=== PATIENT | male | born 1965 | race Caucasian/White ===

== ENCOUNTER 2021-12-18 20:01 | Emergency (ER) | payer OTHER, SELFPAY ==
[2021-12-18 20:02] VITALS: BP 160/89; PULSE 89; RESP 16; TEMP 37.2; O2SAT 97; BMI 47.1
--- NOTE | 2021-12-18 20:27 | EDS_ITS ---
HPI History of Present Illness Chief Complaint: Lower Extremity Injury Detail of Chief Complaint: Right leg pain Informant: patient Onset/Context/Timing Current Severity: Moderate Maximum Severity: Moderate Narrative Narrative: Patient presents couple hours after stepping wrong coming down off his deck and injuring his leg. He complains of pain to the right foot and ankle along with distal tib-fib. He denies any other injury from fall. He was wearing boots at the time. [facility] Medical History Anxiety Hypertension Home Medications Omeprazole [Prilosec] 40 mg PO DAILY 03/06/13 [History Last Taken Unknown] aspirin 81 mg chewable tablet 81 mg PO DAILY@0800 03/06/13 [History Last Taken Unknown] cephalexin 500 mg capsule 500 mg PO Q6 03/06/13 [History Last Taken Unknown] eszopiclone 2 mg tablet (Lunesta) 2 mg PO QHS PRN PRN Sleep 03/06/13 [History Last Taken Unknown] lorazepam 1 mg tablet 1 mg PO QHS PRN PRN Sleep 03/06/13 [History Last Taken Unknown] metoprolol succinate 100 mg tablet,extended release 24 hr 100 mg PO DAILY 03/06/13 [History Last Taken Unknown] doxycycline hyclate 100 mg capsule 100 mg PO BID ##20 04/26/16 [Rx Last Taken Unknown] hydrocodone-acetaminophen 5-325mg 5mg-325mg 1 tab PO Q6H PRN pain 3 days #10 tabs 12/18/21 [Rx Last Taken Unknown] Allergy/AdvReac Type Severity Reaction Status Date / Time No Known Allergies Allergy Verified 12/18/21 20:06 Social History Smoking Status: Never smoker ROS ROS ED Constitutional Constitutional ED: Denies chills or fever(s) Eyes Eyes: Denies change in vision or discharge from eye(s) ENT ENT ED: Denies discharge from eye(s), rhinorrhea or sore throat Cardiovascular Cardiovascular: Denies chest pain or palpitations Respiratory/Chest Respiratory/Chest: Denies cough or dyspnea Gastrointestinal Gastrointestinal: Denies abdominal pain, diarrhea, nausea or vomiting Genitourinary Genitourinary ED: Denies difficulty urinating or dysuria Musculoskeletal Musculoskeletal: Reports extremity pain; Denies back pain Integumentary Denies Abrasions or rash Neurologic Neurologic: Denies headache(s) or weakness Psychiatric Psychiatric: Denies anxiety or depression Allergic/Immunologic Allergic/Immunologic ED: Denies lip swelling or urticaria EXAM Physical Exam Const Vital Signs: 12/18/21 20:02 Temperature 98.9 F Temperature Source Temporal Pulse Rate 89 Respiratory Rate 16 Blood Pressure 160/89 H Blood Pressure Mean 112 Pulse Ox 97 Oxygen Delivery Method Room Air Positive well nourished and well developed General Appearance ED: well developed HEENT Reports moist mucous membranes Eyes PERRL Neck full ROM Chest Wall inspection of chest normal and palpation of chest normal Resp normal respiratory effort and clear to auscultation bilaterally Cardio regular rate and regular rhythm GI non-tender Back/Spine no CVA tenderness Extremity Extremity Narrative: Tenderness palpation and edema to the right ankle, lateral greater than medial. Mild tenderness of the foot itself. No tenderness at the proximal fibula. Neuro oriented x3 and moves all extremities Psych mental status grossly normal Skin no wounds MDM MDM MDM Narrative Medical decision making narrative: Patient given [place] for pain. X-rays of the right tib-fib and right foot obtained. Radiography Diagnostic Testing: Clinical Impression(s) from Imaging Studies Tibia/Fibula X-Ray 12/18/21 20:50 IMPRESSION: Diffuse soft tissue swelling at the level of the ankle. Electronically Signed: Jarrett Hoffman MD at 21:29 EDT , Foot X-Ray 12/18/21 21:00 IMPRESSION: There is a calcaneal spur. There is an enthesophyte involving the posterior superior calcaneus at the site of insertion of the Achilles tendon. Electronically Signed: Jarrett Hoffman MD at 21:30 EDT , Treatment and Re-Evaluation Narrative: Right foot and right tib-fib x-rays per my interpretation reveal no acute fracture. Radiology interpretation is reviewed and agrees. Patient will be given an air stirrup splint. He has crutches in the car that he can use. I will write him a short course of [place] for pain control. Return instructions provided. Discharge Plan Triage Chief Complaint: Lower Extremity Injury ED Provider: Olesya Sanchez Dx/Rx/DC Orders Clinical Impression: Right ankle sprain Instructions: ED Ankle Sprain (Adult) Prescriptions: New hydrocodone-acetaminophen 5-325 mg tablet 1 tab PO Q6H PRN (Reason: pain) 3 Days Qty: 10 0RF No Action metoprolol succinate 100 MG tablet 100 mg PO DAILY cephalexin 500 MG capsule 500 mg PO Q6 aspirin 81 MG tablet,chewable 81 mg PO DAILY@0800 lorazepam 1 MG tablet 1 mg PO QHS PRN PRN (Reason: Sleep) eszopiclone [Lunesta] 2 MG tablet 2 mg PO QHS PRN PRN (Reason: Sleep) Omeprazole [Prilosec] 40 MG capsule 40 mg PO DAILY doxycycline hyclate 100 MG capsule 100 mg PO BID Qty: 20 0RF Primary Care Provider: Gregory Shea Referrals: Gregory Shea MD [Primary Care Provider] - 1 Week if not improving Activity Restrictions/Additional Instructions: Please use ibuprofen to help with pain and swelling. You can use the [place] for breakthrough pain at night. Disposition Disposition: Home, Self Care
[2021-12-18] MEDS: HYDROcodone Bitartrate/Apap 5/325 Tablet PO (20:31)
--- NOTE | 2021-12-18 20:50 | RAD_ITS ---
EXAM: XR RIGHT TIBIA AND FIBULA, 2 VIEWS CLINICAL INDICATION: injury TECHNIQUE: Frontal and lateral views of the right tibia and fibula. This report was created using [employer] report generation technology. COMPARISON: None. FINDINGS: BONES/JOINTS: Benign-appearing exostoses of the medial proximal tibia. The lesion points away from the joint space. No acute fracture. No subluxation. Normal alignment. SOFT TISSUES: Diffuse soft tissue swelling at the level of the ankle. No radiopaque foreign body. RAD/Tibia & Fibula 2 Views IMPRESSION: Diffuse soft tissue swelling at the level of the ankle. Electronically Signed: Jarrett Hoffman MD at 21:29 EDT ,
--- NOTE | 2021-12-18 21:00 | RAD_ITS ---
EXAM: XR RIGHT FOOT COMPLETE, 3 OR MORE VIEWS CLINICAL INDICATION: injury TECHNIQUE: Frontal, lateral and oblique views of the right foot. This report was created using [employer] report generation technology. COMPARISON: None. FINDINGS: BONES/JOINTS: There is a calcaneal spur. There is an enthesophyte involving the posterior superior calcaneus at the site of insertion of the Achilles tendon. No acute fracture. No subluxation. Normal alignment. Preservation of the joint space. No sclerotic or destructive changes observed. SOFT TISSUES: Unremarkable. No soft tissue swelling or gas. No radiopaque foreign body. RAD/Foot min 3 Views IMPRESSION: There is a calcaneal spur. There is an enthesophyte involving the posterior superior calcaneus at the site of insertion of the Achilles tendon. Electronically Signed: Jarrett Hoffman MD at 21:30 EDT ,
== END 2021-12-18 22:56 | disposition home or self-care (01) ==
PROVIDERS: Emergency Provider Emergency Medicine; PCP Family Medicine; Visit Provider Emergency Medicine
DX: S93.401A Sprain of unspecified ligament of right ankle, initial encounter (principal); X50.1XXA Overexertion from prolonged static or awkward postures, initial encounter; Y93.01 Activity, walking, marching and hiking; Y99.8 Other external cause status; Y92.008 Other place in unspecified non-institutional (private) residence as the place of occurrence of the external cause; I10 Essential (primary) hypertension; Z79.82 Long term (current) use of aspirin; Z79.899 Other long term (current) drug therapy
CPT/HCPCS: 73590; 73630; 99283

== ENCOUNTER → 2022-05-29 | Outpatient (CLI) | payer OTHER, SELFPAY ==
--- NOTE | 2022-05-29 06:49 | MRI_ITS ---
STUDY: MRI LUMBAR SPINE WITHOUT CONTRAST REASON FOR EXAM: Male, 56 years old. LOW BACK PAIN TECHNIQUE: Standardized fat and water weighted pulse sequences were obtained in the sagittal and axial planes. COMPARISON: None FINDINGS: T11-T12 and T12-L1: (Sagittal only). Normal endplates. Normal disc height, hydration and morphology. Normal central canal and normal bilateral intervertebral neural foramina. Normal lumbar lordosis. There is no substantial scoliosis. Normal conus medullaris that terminates at the upper L1 vertebral body level. L1-2: Normal endplates. Normal disc height, hydration and morphology. Normal bilateral facet joints. Normal central canal and bilateral lateral recesses. Normal bilateral intervertebral neural foramina. L2-3: Normal endplates. Normal disc height, hydration and morphology. Normal bilateral facet joints. Normal central canal and bilateral lateral recesses. Normal bilateral intervertebral neural foramina. L3-4: Normal endplates. Normal disc height, hydration and morphology. Normal bilateral facet joints. Normal central canal and bilateral lateral recesses. Normal bilateral intervertebral neural foramina. L4-5: Normal endplates. Normal disc height, hydration and morphology. Normal bilateral facet joints. Normal central canal and bilateral lateral recesses. Normal bilateral intervertebral neural foramina. L5-S1: Normal endplates. Normal disc height. Small posterior bulging annulus causing only minimal ventral extradural defect. Mild right degenerative facet arthropathy. Normal left facet joint. Capacious central canal and bilateral lateral recesses. Normal bilateral intervertebral neural foramina. Normal visualized sacral ala. Normal visualized paraspinous soft tissue structures. MRI/Spine Lumbar (Routine) IMPRESSION: No MRI evidence of lumbar extruded disc fragment, disc protrusion, spinal stenosis or nerve root displacement. Electronically Signed: José Davis MD at 12:24 EST ,
== END | disposition home or self-care (01) ==
PROVIDERS: PCP Family Medicine
DX: M54.50 Low back pain, unspecified (principal)
CPT/HCPCS: 72148

== ENCOUNTER → 2022-07-24 | Outpatient (CLI) | payer OTHER, SELFPAY ==
[2022-07-24 12:53] LABS: Vitamin B12 543 pg/mL (211-911)
[2022-07-24 13:02] LABS: Ferritin 19 ng/mL (26-388); Iron 71 ug/dL (65-175); Iron Binding Capacity,Total 477 ug/dL (250-450); PERCENT IRON SATURATION 14.9 % (15.0-55.0)
== END | disposition home or self-care (01) ==
LOC: LAB 11:56
PROVIDERS: PCP Family Medicine; Referring Provider Internal Medicine Gastroenterology; Visit Provider Internal Medicine Gastroenterology
DX: D64.9 Anemia, unspecified (principal); K75.81 Nonalcoholic steatohepatitis (NASH)
CPT/HCPCS: 36415; 82607; 82728; 82746; 83540; 83550

== ENCOUNTER → 2022-08-13 | Outpatient (CLI) | payer OTHER, SELFPAY ==
--- NOTE | 2022-08-13 18:01 | MRI_ITS ---
EXAM: MR LEFT LOWER EXTREMITY WITHOUT INTRAVENOUS CONTRAST, KNEE CLINICAL INDICATION: KNEE PAIN, SPRAIN x 3 months TECHNIQUE: Multiplanar and multisequence MR images of the left knee without intravenous contrast. COMPARISON: No relevant prior studies available. FINDINGS: BONES/JOINTS: Unremarkable. No fracture. No abnormal bone marrow signal. No synovial hypertrophy. No intra-articular body. EXTENSOR MECHANISM: Unremarkable. MEDIAL MENISCUS: Unremarkable. LATERAL MENISCUS: Unremarkable. MEDIAL CAPSULE/SUPPORTING STRUCTURES: Unremarkable. Intact. LATERAL CAPSULE/SUPPORTING STRUCTURES: Unremarkable. Lateral collateral ligamentous complex, inclusive of the popliteal tendon, are intact. ANTERIOR CRUCIATE LIGAMENT: Unremarkable. Intact. POSTERIOR CRUCIATE LIGAMENT: Unremarkable. Intact. MUSCLES: Unremarkable. CARTILAGE: Unremarkable. Intact. FLUID: Unremarkable. No joint effusion. OTHER SOFT TISSUES: Mild prepatellar/anterior subcutaneous edema. No popliteal cyst. MRI/Lower Ext Joint Only (Routine) IMPRESSION: No significant internal derangement Electronically Signed: Javier Woodruff MD at 22:37 EDT ,
== END | disposition home or self-care (01) ==
LOC: MRI 17:53
PROVIDERS: PCP Family Medicine; Referring Provider Orthopaedic Surgery; Visit Provider Orthopaedic Surgery
DX: M25.562 Pain in left knee (principal)
CPT/HCPCS: 73721

== ENCOUNTER 2022-09-16 09:00 | Outpatient (RCR) | payer OTHER, SELFPAY | END 2022-09-18 23:59 | LOC: NS 09:00 | PROVIDERS: PCP Family Medicine; Referring Provider Orthopaedic Surgery; Visit Provider Orthopaedic Surgery | DX: Z71.3 Dietary counseling and surveillance (principal); E66.9 Obesity, unspecified; Z68.42 Body mass index [BMI] 45.0-49.9, adult | CPT/HCPCS: 97802; 97803 ==

== ENCOUNTER 2022-10-06 08:37 | Outpatient (RCR) | payer OTHER, SELFPAY | END 2022-10-19 23:59 | LOC: NS 08:37 | PROVIDERS: PCP Family Medicine; Referring Provider Orthopaedic Surgery; Visit Provider Orthopaedic Surgery | DX: Z71.3 Dietary counseling and surveillance (principal); E66.9 Obesity, unspecified; Z68.42 Body mass index [BMI] 45.0-49.9, adult | CPT/HCPCS: 97803 ==

== ENCOUNTER 2022-10-27 09:52 | Outpatient (RCR) | payer OTHER, SELFPAY | END 2022-11-19 23:59 | LOC: NS 09:52 | PROVIDERS: PCP Family Medicine; Referring Provider Orthopaedic Surgery; Visit Provider Orthopaedic Surgery | DX: Z71.3 Dietary counseling and surveillance (principal); E66.9 Obesity, unspecified; Z68.42 Body mass index [BMI] 45.0-49.9, adult | CPT/HCPCS: 97803 ==